=== PATIENT | male | born 1965 ===

== ENCOUNTER 2018-11-05 23:27 | Observation (INO) | payer MEDICAID, OTHER ==
--- NOTE | 2018-11-06 00:44 | ED PDOC ---
Arrival/HPI - General Chief Complaint: Dizziness/Lightheaded Time Seen by Provider: 11/05/18 23:59 Historian: Patient - History of Present Illness Narrative History of Present Illness (Text): 11/06/18 00:36 53 year old male, with no significant past medical history, presents to the emergency department complaining of generalized weakness, dizziness, and urinary frequency. Patient states he has generally not been feeling well. Patient denies any chest pain, shortness of breath, abdominal pain, or back pain. Patient states he has a history of left inguinal hernia, which he states does not bother him. Patient denies any history of fever, chills, or any other complaint. Time/Duration: Prior to Arrival, 24 hours Symptom Onset: Gradual Symptom Course: Unchanged Activities at Onset: Light Context: Home Past Medical History - Provider Review Nursing Documentation Reviewed: Yes - Tetanus Immunization Tetanus Immunization: Unknown - Gastrointestinal Other/Comment: inguinal hernia - Psychiatric Hx Substance Use: No Family/Social History - Physician Review Nursing Documentation Reviewed: Yes Family/Social History: No Known Family HX Smoking Status: Never Smoked Hx Alcohol Use: No Hx Substance Use: No Allergies/Home Meds Allergies/Adverse Reactions: Allergies No Known Allergies Allergy (Verified 11/05/18 23:59) Home Medications: Home Meds Medication Instructions Recorded Confirmed No Known Home Med 06/11/14 11/05/18 Review of Systems - Physician Review All systems were reviewed & negative as marked: Yes - Review of Systems Constitutional: Fatigue. absent: Fevers, Night Sweats Respiratory: absent: SOB Cardiovascular: absent: Chest Pain Gastrointestinal: absent: Abdominal Pain Genitourinary Male: Frequency Musculoskeletal: absent: Back Pain Neurological: Dizziness Physical Exam Vital Signs Reviewed: Yes Vital Signs Temp Pulse Resp BP Pulse Ox 11/05/18 23:53 98.3 F 113 H 18 145/95 H 99 Temperature: Afebrile Blood Pressure: Hypertensive Pulse: Tachycardic Respiratory Rate: Normal Appearance: Positive for: Well-Appearing, Non-Toxic, Comfortable Pain Distress: None Mental Status: Positive for: Alert and Oriented X 3 Finger Stick Blood Glucose: 117 - Systems Exam Head: Present: Atraumatic, Normocephalic Pupils: Present: PERRL Extroacular Muscles: Present: EOMI Conjunctiva: Present: Normal Mouth: Present: Moist Mucous Membranes Neck: Present: Normal Range of Motion Respiratory/Chest: Present: Clear to Auscultation, Good Air Exchange. No: Respiratory Distress, Accessory Muscle Use Cardiovascular: Present: Regular Rate and Rhythm, Normal S1, S2. No: Murmurs Abdomen: Present: Hernias (Left inguinal hernia, easily reducible, nontender). No: Tenderness, Distention, Peritoneal Signs Genitourinary Male: No: Testicle Swelling Back: Present: Normal Inspection. No: CVA Tenderness Upper Extremity: Present: Normal Inspection. No: Cyanosis, Edema Lower Extremity: Present: Normal Inspection. No: Edema Neurological: Present: GCS=15, CN II-XII Intact, Speech Normal Skin: Present: Warm, Dry, Normal Color. No: Rashes Psychiatric: Present: Alert, Oriented x 3, Normal Insight, Normal Concentration Medical Decision Making ED Course and Treatment: 11/06/18 00:55 Impression: 53 year old male presents with generalized weakness, dizziness, and urinary frequency Plan: -- CT Head -- EKG -- CMP, Cardiac Iso -- CBC -- Chst X-ray -- Urinalysis -- Reassess and disposition Prior Visits: Notes and results from previous visits were reviewed. Progress Notes: 11/06/18 00:58 EKG reviewed by me, shows: Tachycardia @ 112bpm No acute changes 11/06/18 01:05 Chest X-ray reviewed by me, shows: No acute process 11/06/18 01:39 CT Head without Intravenous Contrast. CLINICAL HISTORY: Weak/dizzy TECHNIQUE: Axial computed tomography images of the head/brain without intravenous contrast. 888.73 mGy-cm COMPARISON: CT\SD\SR - HEAD W/O CONTRAST - 06/11/2014 11:47 PM EDT FINDINGS: BRAIN No acute intraparenchymal hemorrhage. No mass lesion. No CT evidence for acute territorial infarct. No midline shift or extra-axial collections. VENTRICLES: No hydrocephalus. ORBITS: The orbits are unremarkable. SINUSES AND MASTOIDS: The paranasal sinuses and mastoid air cells are clear. BONES: No fracture. SOFT TISSUES: Unremarkable. IMPRESSION: No acute intracranial abnormality. No significant change from 06/11/2014. 11/06/18 02:34 Case discussed with biomedical instrument technician and Dr Robles, who accept patient to the hospitalist service. 11/06/18 06:34 Patient with elevated D-Dimer had CT [facility] chest results c/w pulmonary embolism.Pt. received Lovenox.House staff aware. - RAD Interpretation Radiology Orders: 11/06/18 00:11 CHEST PORTABLE [RAD] Stat 11/06/18 00:17 HEAD W/O CONTRAST [CT] Stat - Scribe Statement The provider has reviewed the documentation as recorded by the Shoshanaibe Jose Daniel Vergara Provider Scribe Attestation: All medical record entries made by the Scribe were at my direction and personally dictated by me. I have reviewed the chart and agree that the record accurately reflects my personal performance of the history, physical exam, medical decision making, and the department course for this patient. I have also personally directed, reviewed, and agree with the discharge instructions and disposition. Disposition/Present on Arrival - Present on Arrival Any Indicators Present on Arrival: No History of DVT/PE: No History of Uncontrolled Diabetes: No Urinary Catheter: No History of Decub. Ulcer: No History Surgical Site Infection Following: None - Disposition Have Diagnosis and Disposition been Completed?: Yes Diagnosis: Dizziness, Weakness, Near syncope, Pulmonary embolism Disposition: HOSPITALIZED Disposition Time: 02:39 Patient Problems: Current Active Problems Problem Status Onset Dizziness Acute Near syncope Acute Weakness Acute Condition: STABLE
[2018-11-06 00:55] LABS: HEMOGLOBIN 14.6 g/dL (14.0-18.0); MEAN CELL VOLUME 88.1 fl (80.0-105.0); MEAN CORPUSCULAR HEMOGLOBIN 29.9 pg (25.0-35.0); MEAN CORPUSCULAR HGB CONC 33.9 g/dl (31.0-37.0); MEAN PLATELET VOLUME 10.5 fl (7.0-11.0); RBC 4.89 10^6/uL (3.5-6.1); RED CELL DISTRIBUTION WIDTH 12.7 % (11.5-14.5); WHITE BLOOD COUNT 6.6 10^3/uL (4.5-11.0)
[2018-11-06 00:59] LABS: PH,URINE 6.5 (4.7-8.0); URINE BILIRUBIN NEGATIVE (NEGATIVE); URINE BLOOD NEGATIVE (NEGATIVE); URINE GLUCOSE (UA) NEGATIVE (NEGATIVE); URINE LEUKOCYTE ESTERASE NEGATIVE Leu/uL (NEGATIVE); URINE PROTEIN NEGATIVE mg/dL (<30 mg/dL); URINE UROBILINOGEN 0.2 E.U./dL (<1 E.U./dL)
[2018-11-06 01:04] LABS: ALB/GLOB RATIO 1.4 (1.1-1.8); ALBUMIN 4.6 g/dL (3.0-4.8); ALT/SGPT 22 U/L (7-56); AST/SGOT 35 U/L (17-59); BLOOD UREA NITROGEN 10 mg/dL (7-21); CALCIUM 9.4 mg/dL (8.4-10.5); GFR NON-AFRICAN AMERICAN > 60
[2018-11-06 01:06] LABS: INR 1.1; PARTIAL THROMBOPLASTIN TIME 33.1 Seconds (26.9-38.3); PROTHROMBIN TIME 12.2 SECONDS (9.4-12.5)
[2018-11-06 01:08] LABS: URINE APPEARANCE CLEAR (CLEAR); URINE COLOR STRAW (YELLOW)
[2018-11-06 01:14] LABS: TROPONIN I < 0.01 ng/mL
--- NOTE | 2018-11-06 02:54 | CP.PCM.HP ---
<Waldo Nielsen - Last Filed: 11/06/18 04:03> History of Present Illness - History of Present Illness History of Present Illness: Waldo Nielsen, PGY1 Medicine H&P for Dr. 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 Medical team evaluated patient. 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 He was not involved in any MVA. He mentioned that he only had breakfast for the day, prior to experiencing generalized weakness. He said this has happened in the past about a few years ago. Patient has sick contacts, son had the flu last week. He has never received the flu shot. He has associated urinary frequency however he denies any dysuria. Denies chest pain, shortness of breath, palpitations, nausea, vomiting, diarrhea, fever, chills, runny nose, fatigue. He has never had a colonoscopy. A full 12 point ROS was conducted and unremarkable except as stated above. PMD: Dr. Parnell PMHx: left inguinal hernia PSHx: denies Meds: none Allergies: NKDA SocialHx: denies smoking, EtOH, and illicit drug use. 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 FamHx: mother has HTN. Otherwise, non-contributory. No malignancy in family. Present on Admission - Present on Admission Any Indicators Present on Admission: No Review of Systems - Review of Systems All systems: reviewed and no additional remarkable complaints except (as per HPI) Past Patient History - Tetanus Immunizations Tetanus Immunization: Unknown - Past Social History Smoking Status: Never Smoked - GASTROINTESTINAL Other/Comment: inguinal hernia - PSYCHIATRIC Hx Substance Use: No - SURGICAL HISTORY Hx Surgeries: No Meds Allergies/Adverse Reactions: Allergies Allergy/AdvReac Type Severity Reaction Status Date / Time No Known Allergies Allergy Verified 11/05/18 23:59 Physical Exam - Constitutional Appears: No Acute Distress - Head Exam Head Exam: ATRAUMATIC, NORMAL INSPECTION, NORMOCEPHALIC - Eye Exam Eye Exam: EOMI, Normal appearance, PERRL Pupil Exam: NORMAL ACCOMODATION, PERRL - ENT Exam ENT Exam: Mucous Membranes Moist, Normal Exam - Respiratory Exam Respiratory Exam: Clear to Auscultation Bilateral, NORMAL BREATHING PATTERN. absent: Chest Wall Tenderness, Rales, Rhonchi, Wheezes, Respiratory Distress, Stridor - Cardiovascular Exam Cardiovascular Exam: REGULAR RHYTHM, +S1, +S2. absent: Systolic Murmur - GI/Abdominal Exam GI & Abdominal Exam: Normal Bowel Sounds, Soft. absent: Distended, Firm, Guarding, Organomegaly, Rebound, Rigid, Tenderness Additional comments: left inguinal hernia - Extremities Exam Extremities exam: Positive for: full ROM, normal capillary refill, normal inspection, pedal pulses present - Back Exam Back exam: NORMAL INSPECTION - Neurological Exam Neurological exam: Alert, CN II-XII Intact, Oriented x3, Reflexes Normal Additional comments: Motor strength 5/5 in all extremities. Sensation intact in all extremities. - Psychiatric Exam Psychiatric exam: Normal Affect, Normal Mood - Skin Skin Exam: Dry, Intact, Normal Color, Warm Results - Vital Signs Recent Vital Signs: Last Vital Signs Temp 98.3 F 11/05/18 23:53 Pulse 113 H 11/05/18 23:53 Resp 18 11/05/18 23:53 BP 145/95 H 11/05/18 23:53 Pulse Ox 99 11/05/18 23:53 - Labs Result Diagrams: 11/06/18 00:30 11/06/18 00:30 Labs: Laboratory Results - last 24 hr 11/06/18 11/06/18 11/06/18 00:26 00:30 00:30 WBC RBC Hgb Hct MCV MCH MCHC RDW Plt Count MPV PT 12.2 INR 1.10 APTT 33.1 Sodium 138 Potassium 4.0 Chloride 101 Carbon Dioxide 29 Anion Gap 13 BUN 10 Creatinine 0.8 Est GFR ( Amer) > 60 Est GFR (Non-Af Amer) > 60 Random Glucose 129 H Calcium 9.4 Total Bilirubin 0.5 AST 35 ALT 22 Alkaline Phosphatase 79 Lactate Dehydrogenase 424 Total Creatine Kinase 148 Troponin I < 0.01 Total Protein 7.9 Albumin 4.6 Globulin 3.3 Albumin/Globulin Ratio 1.4 Urine Color Straw Urine Appearance Clear Urine pH 6.5 Ur Specific [place] <= 1.005 Urine Protein Negative Urine Glucose (UA) Negative Urine Ketones Negative Urine Blood Negative Urine Nitrate Negative Urine Bilirubin Negative Urine Urobilinogen 0.2 Ur Leukocyte Esterase Negative 11/06/18 00:30 WBC 6.6 RBC 4.89 Hgb 14.6 Hct 43.1 MCV 88.1 MCH 29.9 MCHC 33.9 RDW 12.7 Plt Count 231 MPV 10.5 PT INR APTT Sodium Potassium Chloride Carbon Dioxide Anion Gap BUN Creatinine Est GFR ( Amer) Est GFR (Non-Af Amer) Random Glucose Calcium Total Bilirubin AST ALT Alkaline Phosphatase Lactate Dehydrogenase Total Creatine Kinase Troponin I Total Protein Albumin Globulin Albumin/Globulin Ratio Urine Color Urine Appearance Urine pH Ur Specific [place] Urine Protein Urine Glucose (UA) Urine Ketones Urine Blood Urine Nitrate Urine Bilirubin Urine Urobilinogen Ur Leukocyte Esterase Assessment & Plan - Assessment and Plan (Free Text) Assessment: Patient is a 53 year old male with PMHx left inguinal hernia who presented to the emergency department complaining of generalized weakness 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 Patient will be observed on remote tele for generalized weakness. Plan: Generalized Weakness - Consider anxiety vs Poor PO intake vs flu - D-dimer; low suspicion as per WELLS criteria however hx yard truck driver and tachycardic on presentation - initial trop negative x1; repeat trop q6 - rapid flu; hx sick contact - admit to remote tele for observation - Regular diet - Head CT: no acute findings - CXR: no infiltrate or consolidation - EKG: sinus tachy at [address] or T wave changes. - UA negative for UTI - Utox negative Dispo: observe patient on remote tele. Case was discussed and reviewed with Attending Physician, Dr. Robles <Adriel Robles - Last Filed: 11/06/18 04:40> Results - Vital Signs Recent Vital Signs: Last Vital Signs Temp 98.2 F 11/06/18 03:19 Pulse 82 11/06/18 03:19 Resp 18 11/06/18 03:19 BP 143/95 H 11/06/18 03:19 Pulse Ox 98 11/06/18 03:19 - Labs Result Diagrams: 11/06/18 00:30 11/06/18 00:30 Labs: Laboratory Results - last 24 hr 11/06/18 11/06/18 11/06/18 00:26 00:30 00:30 WBC RBC Hgb Hct MCV MCH MCHC RDW Plt Count MPV PT 12.2 INR 1.10 APTT 33.1 Sodium 138 Potassium 4.0 Chloride 101 Carbon Dioxide 29 Anion Gap 13 BUN 10 Creatinine 0.8 Est GFR ( Amer) > 60 Est GFR (Non-Af Amer) > 60 Random Glucose 129 H Calcium 9.4 Total Bilirubin 0.5 AST 35 ALT 22 Alkaline Phosphatase 79 Lactate Dehydrogenase 424 Total Creatine Kinase 148 Troponin I < 0.01 Total Protein 7.9 Albumin 4.6 Globulin 3.3 Albumin/Globulin Ratio 1.4 Urine Color Straw Urine Appearance Clear Urine pH 6.5 Ur Specific [place] <= 1.005 Urine Protein Negative Urine Glucose (UA) Negative Urine Ketones Negative Urine Blood Negative Urine Nitrate Negative Urine Bilirubin Negative Urine Urobilinogen 0.2 Ur Leukocyte Esterase Negative 11/06/18 00:30 WBC 6.6 RBC 4.89 Hgb 14.6 Hct 43.1 MCV 88.1 MCH 29.9 MCHC 33.9 RDW 12.7 Plt Count 231 MPV 10.5 PT INR APTT Sodium Potassium Chloride Carbon Dioxide Anion Gap BUN Creatinine Est GFR ( Amer) Est GFR (Non-Af Amer) Random Glucose Calcium Total Bilirubin AST ALT Alkaline Phosphatase Lactate Dehydrogenase Total Creatine Kinase Troponin I Total Protein Albumin Globulin Albumin/Globulin Ratio Urine Color Urine Appearance Urine pH Ur Specific [place] Urine Protein Urine Glucose (UA) Urine Ketones Urine Blood Urine Nitrate Urine Bilirubin Urine Urobilinogen Ur Leukocyte Esterase Attending/Attestation - Attestation I have personally seen and examined this patient.: Yes I have fully participated in the care of the patient.: Yes I have reviewed all pertinent clinical information: Yes Notes (Text): 11/06/18 04:39 Patient was seen when he was in bed # 7 in the ER. Agree with history, physical examination, assessment and plan.
[2018-11-06] MEDS ORDERED: Iodixanol 320 MG/ML 100 ML BOTTLE IV ONE (05:36)
[2018-11-06] MEDS ORDERED: Enoxaparin 80 mg Syringe SC STA (05:41)
[2018-11-06] MEDS: Pantoprazole 40 mg EC Tab PO SCH (06:27)
[2018-11-06 06:32] LABS: BASO # 0.01 K/mm3 (0.0-2.0); BASO % 0.1 % (0.0-3.0); EOS % 0.6 % (1.5-5.0); HEMOGLOBIN 14.1 g/dL (14.0-18.0); LYMPH # 2.7 (1.2-3.4); LYMPH % 39.8 % (22.0-35.0); MEAN CELL VOLUME 88.3 fl (80.0-105.0); MEAN CORPUSCULAR HEMOGLOBIN 29.9 pg (25.0-35.0); MEAN CORPUSCULAR HGB CONC 33.8 g/dl (31.0-37.0); MEAN PLATELET VOLUME 10.2 fl (7.0-11.0); MONO # 0.7 (0.1-0.6); MONO % 10.3 % (1.0-6.0); RBC 4.72 10^6/uL (3.5-6.1); RED CELL DISTRIBUTION WIDTH 12.7 % (11.5-14.5); WHITE BLOOD COUNT 6.8 10^3/uL (4.5-11.0)
[2018-11-06 06:35] VITALS: BMI 22.4
[2018-11-06] MEDS ORDERED: Heparin 25,000units in D5W 25,000 UNITS/250 ML BAG IV ONE (06:38)
[2018-11-06 06:48] LABS: TROPONIN I < 0.01 ng/mL
--- NOTE | 2018-11-06 08:40 | CT ---
Date of service: 11/06/2018 PROCEDURE: CT HEAD WITHOUT CONTRAST. HISTORY: weak/dizzy COMPARISON: None available. TECHNIQUE: Axial computed tomography images were obtained through the head/brain without intravenous contrast. Radiation dose: Total exam DLP = 888.73 mGy-cm. This CT exam was performed using one or more of the following dose reduction techniques: Automated exposure control, adjustment of the mA and/or kV according to patient size, and/or use of iterative reconstruction technique. FINDINGS: HEMORRHAGE: No intracranial hemorrhage. BRAIN: Kebede-white matter differentiation is preserved. There is no mass, mass effect or abnormal extra-axial fluid collection. There is no territorial infarction. The midline sagittal structures are normal. VENTRICLES: The ventricles are normal in size, shape and configuration. CALVARIUM: There is no calvarial fracture or extracranial soft tissue swelling. PARANASAL SINUSES: Predominantly clear. MASTOID AIR CELLS: Predominantly clear. OTHER FINDINGS: None. IMPRESSION: No acute intracranial abnormality. A preliminary report was provided by [facility]. Six
--- NOTE | 2018-11-06 08:52 | US ---
HISTORY: Leg pain and swelling. Evaluate for DVT PHYSICIAN(S): Jose Daniel Bailey MD. TECHNIQUE: Duplex sonography and color-flow Doppler with graded compression were used to evaluate the deep venous systems of both lower extremities. FINDINGS: The visualized deep venous systems of both lower extremities are sonographically normal and compressible. Normal wave forms and augmentation are seen. There is no sonographic evidence for deep venous thrombosis in the visualized segments of both lower extremities. IMPRESSION: No sonographic evidence for deep venous thrombosis in the visualized segments of both lower extremities.
[2018-11-06 09:04] LABS: BASO # 0.01 K/mm3 (0.0-2.0); BASO % 0.2 % (0.0-3.0); EOS % 0.6 % (1.5-5.0); HEMOGLOBIN 15.1 g/dL (14.0-18.0); LYMPH # 1.8 (1.2-3.4); MEAN CELL VOLUME 88.3 fl (80.0-105.0); MEAN CORPUSCULAR HGB CONC 33.9 g/dl (31.0-37.0); MEAN PLATELET VOLUME 10.1 fl (7.0-11.0); MONO # 0.3 (0.1-0.6); MONO % 6.1 % (1.0-6.0); RBC 5.04 10^6/uL (3.5-6.1); RED CELL DISTRIBUTION WIDTH 12.9 % (11.5-14.5); WHITE BLOOD COUNT 5.2 10^3/uL (4.5-11.0)
[2018-11-06 09:11] LABS: HDL CHOLESTEROL 51 mg/dL (29-60)
[2018-11-06 09:15] LABS: INR 1.12; PARTIAL THROMBOPLASTIN TIME 52.7 Seconds (26.9-38.3); PROTHROMBIN TIME 12.6 SECONDS (9.4-12.5)
[2018-11-06 09:21] LABS: LDL CHOLESTEROL 166 mg/dL (0-129)
--- NOTE | 2018-11-06 11:39 | CARD ---
APPROVED REPORT Date of service: 11/05/2018 EKG Measurement Heart [id number] <Conclusion> Sinus tachycardia Otherwise normal ECG
--- NOTE | 2018-11-06 12:55 | CARD ---
APPROVED REPORT Date of service: 11/06/2018 EXAM: Two-dimensional and M-mode echocardiogram with Doppler and color Doppler. INDICATION Pleural Effusion 2D DIMENSIONS Left Atrium (2D)3.0 (1.6-4.0cm)IVSd1.0 (0.7-1.1cm) LVDd3.7 (3.9-5.9cm)PWd1.1 (0.7-1.1cm) LVDs2.4 (2.5-4.0cm)FS (%) 34.2 % LVEF (%)64.1 (>50%) M-Mode DIMENSIONS Aortic Root3.10 (2.2-3.7cm)Aortic Cusp Exc.1.80 (1.5-2.0cm) Aortic Valve AoV Peak Ahddgqhr543.0cm/[place] Peak GR.5mmHg Mitral Valve MV E Dricuquh08.9cm/sMV A Scyjrrst96.7cm/sE/A ratio0.8 TDI E/Lateral E'0.0E/Medial E'0.0 Tricuspid Valve TR Peak Sdstzjtf07io/sRAP [id number] Peak Gr.3mmHg [id number] LEFT VENTRICLE The left ventricle is normal size. There is normal left ventricular wall thickness. The left ventricular function is normal.EF-60-65% There is normal LV segmental wall motion. Transmitral Doppler flow pattern is Grade III-reversible restrictive diastolic dysfunction. No left ventricle thrombus noted on this study. There is no ventricular septal defect visualized. There is no left ventricular aneurysm. There is no mass noted in the left ventricle. RIGHT VENTRICLE The right ventricle is normal size. There is normal right ventricular wall thickness. The right ventricular systolic function is normal. ATRIA The left atrium size is normal. The right atrium size is normal. The interatrial septum is intact with no evidence for an atrial septal defect. AORTIC VALVE The aortic valve is thickened but opens well. A bicuspid aortic valve cannot be excluded. The aortic valve is not well visualized. There is trace to mild aortic regurgitation. There is no aortic valvular stenosis. There is no aortic valvular vegetation. MITRAL VALVE The mitral valve is thickened but opens well. Mitral regurgitation is trace. There is no mitral valve stenosis. There is no evidence of mitral valve prolapse. TRICUSPID VALVE The tricuspid valve leaflets are thickened , but open well. There is trace tricuspid regurgitation.RVSP-13 mmof hg. There is no tricuspid valve stenosis. There is no tricuspid valve prolapse or vegetation. PULMONIC VALVE The pulmonary valve is normal in structure. There is no pulmonic valvular regurgitation. There is no pulmonic valvular stenosis. GREAT VESSELS The aortic root is normal in size. The ascending aorta is normal in size. The pulmonary artery is normal. The IVC is normal in size and collapses >50% with inspiration. PERICARDIAL EFFUSION There is no pleural effusion. There is no pericardial effusion. <Conclusion> Normal chamber Size,. EF-60-65% There is trace to mild aortic regurgitation. A bicuspid aortic valve cannot be excluded. The aortic valve is not well visualized. Mitral regurgitation is trace. There is trace tricuspid regurgitation.RVSP-13 mmof hg. The IVC is normal in size and collapses >50% with inspiration. There is no pericardial effusion. No vegetation or thrombus noted.
[2018-11-06 13:29] LABS: EOS % 0.4 % (1.5-5.0); HEMOGLOBIN 14.4 g/dL (14.0-18.0); LYMPH # 1.8 (1.2-3.4); LYMPH % 35.1 % (22.0-35.0); MEAN CORPUSCULAR HEMOGLOBIN 29.4 pg (25.0-35.0); MONO # 0.4 (0.1-0.6); MONO % 8.8 % (1.0-6.0); RBC 4.9 10^6/uL (3.5-6.1); RED CELL DISTRIBUTION WIDTH 12.8 % (11.5-14.5)
--- NOTE | 2018-11-06 13:37 | RAD ---
Date of service: 11/06/2018 PROCEDURE: CHEST RADIOGRAPH, 1 VIEW HISTORY: weakness/dizzy COMPARISON: None available. FINDINGS: LUNGS: Clear. PLEURA: No pneumothorax or pleural fluid seen. CARDIOVASCULAR: No aortic atherosclerotic calcification present. Normal. OSSEOUS STRUCTURES: No significant abnormalities. VISUALIZED UPPER ABDOMEN: Normal. OTHER FINDINGS: None. IMPRESSION: No active disease.
[2018-11-06 13:50] LABS: TROPONIN I < 0.01 ng/mL
--- NOTE | 2018-11-06 15:34 | CT ---
Date of service: 11/06/2018 PROCEDURE: CT Chest with contrast (Pulmonary Angiogram) HISTORY: evaluate for PE COMPARISON: None available. TECHNIQUE: Axial computed tomography images were obtained of the chest in the pulmonary arterial phase of enhancement. Coronal and sagittal reformatted images were created and reviewed. Intravenous contrast dose: Visipaque 320, 100 cc Radiation dose: Total exam DLP = 314.1 mGy-cm. This CT exam was performed using one or more of the following dose reduction techniques: Automated exposure control, adjustment of the mA and/or kV according to patient size, and/or use of iterative reconstruction technique. FINDINGS: PULMONARY ARTERIES: There is a small pulmonary embolus identified is a filling defect in a segmental branch at the right lower lobe. No prominent pulmonary emboli identified bilaterally. Main pulmonary artery is normal in caliber and no overt CT sign of right ventricular strain is identified at this time. Clinically correlate nevertheless. AORTA: No acute findings. No thoracic aortic aneurysm. No aortic atherosclerotic calcification or mural plaque present. LUNGS: Unremarkable. No nodule, mass or pulmonary consolidation. PLEURAL SPACES: Unremarkable. No effusion or pneumothorax. HEART: Unremarkable. No cardiomegaly. No significant pericardial effusion. LYMPH NODES: The thoracic inlet is unremarkable appearing. No significant lymphadenopathy. BONES, CHEST WALL: Unremarkable. No fracture or destructive lesion OTHER FINDINGS: Unremarkable. IMPRESSION: Limited pulmonary embolus right lower lobe as discussed above in segmental branch. No additional acute findings. Concordant preliminary report from [facility], 11/06/2018 6:18 a.m..
[2018-11-06] MEDS: Enoxaparin 80 mg Syringe SC SCH ×2 (17:12→21:06)
[2018-11-06] MEDS ORDERED: Enoxaparin 60 mg Syringe SC ONE (17:30)
[2018-11-06 19:26] LABS: TROPONIN I < 0.01 ng/mL
--- NOTE | 2018-11-06 22:23 | CP.PCM.CON ---
History of Present Illness - History of Present Illness History of Present Illness: Covering Jermaine 53 year old male with no past medical history, presenting with fatigue, found to have PE. 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 He finished driving and notes to goint to the bathroom and suddenly became very weak and tired. His symptoms worried him and he came to the ER. In the ER he was found to have an elevated Ddimer and underwent LE venous duplex which was negative for DVT. CT angio of the chest showed a subsegmental PE. He is currently on lovenox and notes to feeling better. Past medical history: None Past surgical history: Denies Family history: Denies hematologic and oncologic problems Social history: Denies tobacco, alcohol, and illicit drug use. Allergies: NKA Review of systems: All remaining review of systems including HEENT, cardiovascular, respiratory, gastrointestinal, genitourinary, musculoskeletal, dermatologic,neurologic, and psychiatric are negative unless mentioned in the HPI. Past Patient History - Tetanus Immunizations Tetanus Immunization: Unknown - Past Social History Smoking Status: Never Smoked - MUSCULOSKELETAL/RHEUMATOLOGICAL Hx Falls: No - GASTROINTESTINAL Other/Comment: inguinal hernia - PSYCHIATRIC Hx Substance Use: No - SURGICAL HISTORY Hx Surgeries: No Meds Allergies/Adverse Reactions: Allergies Allergy/AdvReac Type Severity Reaction Status Date / Time No Known Allergies Allergy Verified 11/05/18 23:59 - Medications Medications: Current Medications Enoxaparin Sodium (Lovenox) 65 mg SC Q12 [facility]; Protocol Last Admin: 11/06/18 21:06 Dose: 65 mg Pantoprazole Sodium (Protonix Ec Tab) 40 mg PO 0600 [facility] Last Admin: 11/06/18 06:27 Dose: 40 mg Physical Exam - Head Exam Head Exam: ATRAUMATIC - Eye Exam Eye Exam: Normal appearance - ENT Exam ENT Exam: Mucous Membranes Dry - Respiratory Exam Respiratory Exam: NORMAL BREATHING PATTERN - Cardiovascular Exam Cardiovascular Exam: +S1, +S2 - GI/Abdominal Exam GI & Abdominal Exam: Normal Bowel Sounds - Extremities Exam Extremities exam: Positive for: normal inspection - Neurological Exam Neurological exam: Oriented x3 - Psychiatric Exam Psychiatric exam: Normal Affect, Normal Mood - Skin Skin Exam: Warm Results - Vital Signs Recent Vital Signs: Last Vital Signs Temp 99 F 11/06/18 16:43 Pulse 75 11/06/18 16:43 Resp 20 11/06/18 16:43 BP 126/86 11/06/18 16:43 Pulse Ox 96 11/06/18 16:43 - Labs Result Diagrams: 11/06/18 13:00 11/06/18 00:30 Labs: Laboratory Results - last 24 hr 11/05/18 11/06/18 11/06/18 23:50 00:26 00:30 WBC RBC Hgb Hct MCV MCH MCHC RDW Plt Count MPV Neut % (Auto) Lymph % (Auto) [place] % (Auto) Eos % (Auto) Baso % (Auto) Lymph # (Auto) [place] # (Auto) Eos # (Auto) Baso # (Auto) Absolute Neuts (auto) PT 12.2 INR 1.10 APTT 33.1 D-Dimer, Quantitative Sodium Potassium Chloride Carbon Dioxide Anion Gap BUN Creatinine Est GFR ( Amer) Est GFR (Non-Af Amer) POC Glucose (mg/dL) 117 H Random Glucose Hemoglobin A1c Calcium Magnesium Total Bilirubin AST ALT Alkaline Phosphatase Lactate Dehydrogenase Total Creatine Kinase Troponin I Total Protein Albumin Globulin Albumin/Globulin Ratio Triglycerides Cholesterol LDL Cholesterol Direct HDL Cholesterol TSH 3rd Generation Urine Color Straw Urine Appearance Clear Urine pH 6.5 Ur Specific [place] <= 1.005 Urine Protein Negative Urine Glucose (UA) Negative Urine Ketones Negative Urine Blood Negative Urine Nitrate Negative Urine Bilirubin Negative Urine Urobilinogen 0.2 Ur Leukocyte Esterase Negative Influenza Typ A,B (EIA) 11/06/18 11/06/18 11/06/18 00:30 00:30 00:30 WBC 6.6 RBC 4.89 Hgb 14.6 Hct 43.1 MCV 88.1 MCH 29.9 MCHC 33.9 RDW 12.7 Plt Count 231 MPV 10.5 Neut % (Auto) Lymph % (Auto) [place] % (Auto) Eos % (Auto) Baso % (Auto) Lymph # (Auto) [place] # (Auto) Eos # (Auto) Baso # (Auto) Absolute Neuts (auto) PT INR APTT D-Dimer, Quantitative 3330 H Sodium 138 Potassium 4.0 Chloride 101 Carbon Dioxide 29 Anion Gap 13 BUN 10 Creatinine 0.8 Est GFR ( Amer) > 60 Est GFR (Non-Af Amer) > 60 POC Glucose (mg/dL) Random Glucose 129 H Hemoglobin A1c Calcium 9.4 Magnesium Total Bilirubin 0.5 AST 35 ALT 22 Alkaline Phosphatase 79 Lactate Dehydrogenase 424 Total Creatine Kinase 148 Troponin I < 0.01 Total Protein 7.9 Albumin 4.6 Globulin 3.3 Albumin/Globulin Ratio 1.4 Triglycerides Cholesterol LDL Cholesterol Direct HDL Cholesterol TSH 3rd Generation Urine Color Urine Appearance Urine pH Ur Specific [place] Urine Protein Urine Glucose (UA) Urine Ketones Urine Blood Urine Nitrate Urine Bilirubin Urine Urobilinogen Ur Leukocyte Esterase Influenza Typ A,B (EIA) 11/06/18 11/06/18 11/06/18 04:43 06:00 06:00 WBC 6.8 RBC 4.72 Hgb 14.1 Hct 41.7 L MCV 88.3 MCH 29.9 MCHC 33.8 RDW 12.7 Plt Count 221 MPV 10.2 Neut % (Auto) 49.2 L Lymph % (Auto) 39.8 H [place] % (Auto) 10.3 H Eos % (Auto) 0.6 L Baso % (Auto) 0.1 Lymph # (Auto) 2.7 [place] # (Auto) 0.7 H Eos # (Auto) 0.0 Baso # (Auto) 0.01 Absolute Neuts (auto) 3.34 PT INR APTT D-Dimer, Quantitative Sodium Potassium Chloride Carbon Dioxide Anion Gap BUN Creatinine Est GFR ( Amer) Est GFR (Non-Af Amer) POC Glucose (mg/dL) Random Glucose Hemoglobin A1c Calcium Magnesium 2.0 Total Bilirubin AST ALT Alkaline Phosphatase Lactate Dehydrogenase Total Creatine Kinase Troponin I < 0.01 Total Protein Albumin Globulin Albumin/Globulin Ratio Triglycerides Cholesterol LDL Cholesterol Direct HDL Cholesterol TSH 3rd Generation Urine Color Urine Appearance Urine pH Ur Specific [place] Urine Protein Urine Glucose (UA) Urine Ketones Urine Blood Urine Nitrate Urine Bilirubin Urine Urobilinogen Ur Leukocyte Esterase Influenza Typ A,B (EIA) Negative for flu a/b 11/06/18 11/06/18 11/06/18 08:45 08:45 08:45 WBC 5.2 D RBC 5.04 Hgb 15.1 Hct 44.5 MCV 88.3 MCH 30.0 MCHC 33.9 RDW 12.9 Plt Count 222 MPV 10.1 Neut % (Auto) 59.1 Lymph % (Auto) 34.0 [place] % (Auto) 6.1 H Eos % (Auto) 0.6 L Baso % (Auto) 0.2 Lymph # (Auto) 1.8 [place] # (Auto) 0.3 Eos # (Auto) 0.0 Baso # (Auto) 0.01 Absolute Neuts (auto) 3.10 PT 12.6 H INR 1.12 APTT 52.7 H D-Dimer, Quantitative Sodium Potassium Chloride Carbon Dioxide Anion Gap BUN Creatinine Est GFR ( Amer) Est GFR (Non-Af Amer) POC Glucose (mg/dL) Random Glucose Hemoglobin A1c Calcium Magnesium Total Bilirubin AST ALT Alkaline Phosphatase Lactate Dehydrogenase Total Creatine Kinase Troponin I Total Protein Albumin Globulin Albumin/Globulin Ratio Triglycerides 46 Cholesterol 233 H LDL Cholesterol Direct 166 H HDL Cholesterol 51 TSH 3rd Generation Urine Color Urine Appearance Urine pH Ur Specific [place] Urine Protein Urine Glucose (UA) Urine Ketones Urine Blood Urine Nitrate Urine Bilirubin Urine Urobilinogen Ur Leukocyte Esterase Influenza Typ A,B (EIA) 11/06/18 11/06/18 11/06/18 08:45 08:45 13:00 WBC 5.0 RBC 4.90 Hgb 14.4 Hct 43.6 MCV 89.0 MCH 29.4 MCHC 33.0 RDW 12.8 Plt Count 230 MPV 10.0 Neut % (Auto) 55.7 Lymph % (Auto) 35.1 H [place] % (Auto) 8.8 H Eos % (Auto) 0.4 L Baso % (Auto) 0.0 Lymph # (Auto) 1.8 [place] # (Auto) 0.4 Eos # (Auto) 0.0 Baso # (Auto) 0.00 Absolute Neuts (auto) 2.80 PT INR APTT D-Dimer, Quantitative Sodium Potassium Chloride Carbon Dioxide Anion Gap BUN Creatinine Est GFR ( Amer) Est GFR (Non-Af Amer) POC Glucose (mg/dL) Random Glucose Hemoglobin A1c 5.7 Calcium Magnesium Total Bilirubin AST ALT Alkaline Phosphatase Lactate Dehydrogenase Total Creatine Kinase Troponin I Total Protein Albumin Globulin Albumin/Globulin Ratio Triglycerides Cholesterol LDL Cholesterol Direct HDL Cholesterol TSH 3rd Generation 1.08 Urine Color Urine Appearance Urine pH Ur Specific [place] Urine Protein Urine Glucose (UA) Urine Ketones Urine Blood Urine Nitrate Urine Bilirubin Urine Urobilinogen Ur Leukocyte Esterase Influenza Typ A,B (EIA) 11/06/18 11/06/18 11/06/18 13:00 13:00 19:02 WBC RBC Hgb Hct MCV MCH MCHC RDW Plt Count MPV Neut % (Auto) Lymph % (Auto) [place] % (Auto) Eos % (Auto) Baso % (Auto) Lymph # (Auto) [place] # (Auto) Eos # (Auto) Baso # (Auto) Absolute Neuts (auto) PT INR APTT 47.9 H D-Dimer, Quantitative Sodium Potassium Chloride Carbon Dioxide Anion Gap BUN Creatinine Est GFR ( Amer) Est GFR (Non-Af Amer) POC Glucose (mg/dL) Random Glucose Hemoglobin A1c Calcium Magnesium Total Bilirubin AST ALT Alkaline Phosphatase Lactate Dehydrogenase 373 364 Total Creatine Kinase 164 173 Troponin I < 0.01 < 0.01 Total Protein Albumin Globulin Albumin/Globulin Ratio Triglycerides Cholesterol LDL Cholesterol Direct HDL Cholesterol TSH 3rd Generation Urine Color Urine Appearance Urine pH Ur Specific [place] Urine Protein Urine Glucose (UA) Urine Ketones Urine Blood Urine Nitrate Urine Bilirubin Urine Urobilinogen Ur Leukocyte Esterase Influenza Typ A,B (EIA) Assessment & Plan (1) Pulmonary embolism Assessment and Plan: likely embolized from LE - provoked from long driving agree with therapeutic anticoagulation outpatient NOAC - minimum duration 6m but consider lifelong given occupational hazard oupatient surveillance colonoscopy Status: Acute (2) Coagulopathy Assessment and Plan: secondary to anticoagulation Thank you for this interesting consult. Status: Acute
[2018-11-07] MEDS: Pantoprazole 40 mg EC Tab PO SCH (05:50)
[2018-11-07 06:43] LABS: BASO # 0.02 K/mm3 (0.0-2.0); BASO % 0.4 % (0.0-3.0); EOS # 0.1 (0.0-0.7); EOS % 1.6 % (1.5-5.0); HEMOGLOBIN 15.1 g/dL (14.0-18.0); LYMPH # 3.5 (1.2-3.4); LYMPH % 62.8 % (22.0-35.0); MEAN CORPUSCULAR HEMOGLOBIN 29.5 pg (25.0-35.0); MEAN CORPUSCULAR HGB CONC 32.8 g/dl (31.0-37.0); MEAN PLATELET VOLUME 10.7 fl (7.0-11.0); MONO # 0.6 (0.1-0.6); MONO % 10.3 % (1.0-6.0); RBC 5.12 10^6/uL (3.5-6.1); RED CELL DISTRIBUTION WIDTH 12.9 % (11.5-14.5); WHITE BLOOD COUNT 5.6 10^3/uL (4.5-11.0)
[2018-11-07 07:20] LABS: ALB/GLOB RATIO 1.3 (1.1-1.8); ALBUMIN 4.5 g/dL (3.0-4.8); ALT/SGPT 22 U/L (7-56); AST/SGOT 33 U/L (17-59); BLOOD UREA NITROGEN 14 mg/dL (7-21); CALCIUM 9.3 mg/dL (8.4-10.5); GFR NON-AFRICAN AMERICAN > 60
[2018-11-07 09:42] VITALS: BP 117/75; RESP 18; TEMP 98.2; O2SAT 97
[2018-11-07 14:43] VITALS: PULSE 102
--- NOTE | 2018-11-07 16:37 | CP.PCM.DIS ---
<Livan Giron - Last Filed: 11/07/18 16:31> Provider - Provider Date of Admission: 11/06/18 02:39 Attending physician: Eliseo Ocampo MD Primary care physician: Juan J Parnell MD Consults: 11/06/18 06:37 Consult [Physician Consult] Routine Comment: pe,elevatd d-dimer Consulting Provider: Nica Dean Consulting Physician: Nica Dean Reason for Consult: pe,elevatd d-dimer Time Spent in preparation of Discharge (in minutes): 60 Diagnosis - Discharge Diagnosis (1) Pulmonary embolism Status: Acute Hospital Course - Lab Results Lab Results: Most Recent Lab Values WBC 5.6 10^3/uL (4.5-11.0) 11/07/18 06:00 RBC 5.12 10^6/uL (3.5-6.1) 11/07/18 06:00 Hgb 15.1 g/dL (14.0-18.0) 11/07/18 06:00 Hct 46.1 % (42.0-52.0) 11/07/18 06:00 MCV 90.0 fl (80.0-105.0) 11/07/18 06:00 MCH 29.5 pg (25.0-35.0) 11/07/18 06:00 MCHC 32.8 g/dl (31.0-37.0) 11/07/18 06:00 RDW 12.9 % (11.5-14.5) 11/07/18 06:00 Plt Count 234 10^3/uL (120.0-450.0) 11/07/18 06:00 MPV 10.7 fl (7.0-11.0) 11/07/18 06:00 Neut % (Auto) 24.9 % (50.0-68.0) L 11/07/18 06:00 Lymph % (Auto) 62.8 % (22.0-35.0) H 11/07/18 06:00 [place] % (Auto) 10.3 % (1.0-6.0) H 11/07/18 06:00 Eos % (Auto) 1.6 % (1.5-5.0) 11/07/18 06:00 Baso % (Auto) 0.4 % (0.0-3.0) 11/07/18 06:00 Lymph # (Auto) 3.5 (1.2-3.4) H 11/07/18 06:00 [place] # (Auto) 0.6 (0.1-0.6) 11/07/18 06:00 Eos # (Auto) 0.1 (0.0-0.7) 11/07/18 06:00 Baso # (Auto) 0.02 K/mm3 (0.0-2.0) 11/07/18 06:00 Absolute Neuts (auto) 1.41 (1.4-6.5) 11/07/18 06:00 PT 12.6 SECONDS (9.4-12.5) H 11/06/18 08:45 INR 1.12 11/06/18 08:45 APTT 47.9 Seconds (26.9-38.3) H 11/06/18 13:00 D-Dimer, Quantitative 3330 ng/mlDDU (0-243) H 11/06/18 00:30 Sodium 141 mmol/L (132-148) 11/07/18 06:00 Potassium 4.2 mmol/L (3.6-5.0) 11/07/18 06:00 Chloride 101 mmol/L (98-107) 11/07/18 06:00 Carbon Dioxide 32 mmol/L (21-33) 11/07/18 06:00 Anion Gap 12 (10-20) 11/07/18 06:00 BUN 14 mg/dL (7-21) 11/07/18 06:00 Creatinine 0.9 mg/dl (0.8-1.5) 11/07/18 06:00 Est GFR ( Amer) > 60 11/07/18 06:00 Est GFR (Non-Af Amer) > 60 11/07/18 06:00 POC Glucose (mg/dL) 117 mg/dL (65-110) H 11/05/18 23:50 Random Glucose 98 mg/dL (70-110) 11/07/18 06:00 Hemoglobin A1c 5.7 % (4.2-6.5) 11/06/18 08:45 Calcium 9.3 mg/dL (8.4-10.5) 11/07/18 06:00 Magnesium 2.0 mg/dL (1.7-2.2) 11/06/18 06:00 Total Bilirubin 0.7 mg/dL (0.2-1.3) 11/07/18 06:00 AST 33 U/L (17-59) 11/07/18 06:00 ALT 22 U/L (7-56) 11/07/18 06:00 Alkaline Phosphatase 67 U/L (38-126) 11/07/18 06:00 Lactate Dehydrogenase 364 U/L (333-699) 11/06/18 19:02 Total Creatine Kinase 173 U/L (35-230) 11/06/18 19:02 Troponin I < 0.01 ng/mL 11/06/18 19:02 Total Protein 7.9 g/dL (5.8-8.3) 11/07/18 06:00 Albumin 4.5 g/dL (3.0-4.8) 11/07/18 06:00 Globulin 3.4 gm/dL 11/07/18 06:00 Albumin/Globulin Ratio 1.3 (1.1-1.8) 11/07/18 06:00 Triglycerides 46 mg/dL (35-160) 11/06/18 08:45 Cholesterol 233 mg/dL (130-200) H 11/06/18 08:45 LDL Cholesterol Direct 166 mg/dL (0-129) H 11/06/18 08:45 HDL Cholesterol 51 mg/dL (29-60) 11/06/18 08:45 TSH 3rd Generation 1.08 mIU/mL (0.46-4.68) 11/06/18 08:45 Urine Color Straw (YELLOW) 11/06/18 00:26 Urine Appearance Clear (CLEAR) 11/06/18 00:26 Urine pH 6.5 (4.7-8.0) 11/06/18 00:26 Ur Specific [place] <= 1.005 (1.005-1.035) 11/06/18 00:26 Urine Protein Negative mg/dL (<30 mg/dL) 11/06/18 00:26 Urine Glucose (UA) Negative mg/dL (NEGATIVE) 11/06/18 00:26 Urine Ketones Negative mg/dL (NEGATIVE) 11/06/18 00:26 Urine Blood Negative (NEGATIVE) 11/06/18 00:26 Urine Nitrate Negative (NEGATIVE) 11/06/18 00:26 Urine Bilirubin Negative (NEGATIVE) 11/06/18 00:26 Urine Urobilinogen 0.2 E.U./dL (<1 E.U./dL) 11/06/18 00:26 Ur Leukocyte Esterase Negative [place]/uL (NEGATIVE) 11/06/18 00:26 Influenza Typ A,B (EIA) Negative for flu a/b (NEGATIVE) 11/06/18 04:43 - Hospital Course Hospital Course: Livan Giron, PGY-1, Discharge Summary for Dr. 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 Patient reported similar experience a few years ago. He denied being involved in any MVA. Upon workup, EKG was normal sinus rhythm at 112 bpm with no acute ST or T wave changes and troponin were negative x3. CXR, CT Head and Abdomen/Pelvis CT were all negative. However, D-dimer was significantly elevated at 3330. LE venous duplex was negative for DVT. CTA of the chest showed a segmental Pulmonary Embolus of the right lower lobe. Subsequently, patient was started on Lovenox 65mg Q12H. Further lab workup showed elevated cholesterol and LDL for which the patient was started on Lipitor 10mg DIN. Patient was stable and ready for discharge today. He reported feeling better this morning and no residual symptoms. He was prescribed eliquis PO 10 mg BID for 7 days and was told to take eliquis 5 mg after the 7 days. He was told to continue his medication regimen and to follow up with PCP. He was told to follow up with Dr. Maki outpatient for further management of his anticoagulation. He was counseled about the importance of anti-coagulation as well as advised to abstain from an activities that require traumatic contact. In addition, he was told to be vigilant about any potential bleeding and to return to the emergency department if she had any recurring or new concerning symptoms. This is a brief summary of the events that occurred during this hospital stay. For more information, please refer to the hospital documentation. - Date & Time of H&P Date of H&P: 11/06/18 Time of H&P: 02:48 Discharge Exam - Head Exam Head Exam: ATRAUMATIC - Eye Exam Eye Exam: EOMI, PERRL - Respiratory Exam Respiratory Exam: Clear to PA & Lateral, NORMAL BREATHING PATTERN - Cardiovascular Exam Cardiovascular Exam: REGULAR RHYTHM, RRR - GI/Abdominal Exam GI & Abdominal Exam: Normal Bowel Sounds, Soft. absent: Tenderness - Extremities Exam Extremities exam: full ROM - Neurological Exam Neurological exam: Alert, CN II-XII Intact, Oriented x3 - Skin Skin Exam: Dry, Intact Discharge Plan - Discharge Medications Prescriptions: Apixaban [Eliquis] 5 mg PO BID #60 tablet Apixaban [Eliquis] 10 mg PO BID #26 tab Atorvastatin [Lipitor] 20 mg PO DAILY #30 tab - Follow Up Plan Condition: STABLE Disposition: HOME/ ROUTINE Instructions: Bleeding Precautions Additional Instructions: 1) You are to take Eliquis 10 mg twice a day, once in the morning and once in the evening, for a total of seven days. The last dose should be in the evening of November 13, 2018. 2) Then on November 14 you should take the 5 mg Eliquis tablet, twice a day, once in the morning and once in the evening, for at least six months. 3) Follow up with your PMD, Dr. Parenll, within the next 5 day. 4) You are also being prescribed a medication for your cholesterol called Atorvastatin, you are to take this tablet after dinner or before bedtime. 5) We strongly recommend that you walk at least 30 minutes everyday. 6) Remember, you are on a blood thinner now, and therefore, if you have any bleeding that will not stop, come to the Emergency department immediately. 7) Also, you should schedule an appointment with the human resources operations manager, Dr. Maki, as we discussed. 8) Please return to the emergency department if you have any new or concerning symptoms. Referrals: Ernesto Maki MD [Staff Provider] - Juan J Parnell MD [Primary Care Provider] - <Harmony Quintanilla - Last Filed: 11/07/18 16:47> Provider - Provider Date of Admission: 11/06/18 02:39 Attending physician: Eliseo Ocampo MD Primary care physician: Juan J Parnell MD Consults: 11/06/18 06:37 Consult [Physician Consult] Routine Comment: pe,elevatd d-dimer Consulting Provider: Nica Dean Consulting Physician: Nica Dean Reason for Consult: pe,elevatd d-dimer Hospital Course - Lab Results Lab Results: Most Recent Lab Values WBC 5.6 10^3/uL (4.5-11.0) 11/07/18 06:00 RBC 5.12 10^6/uL (3.5-6.1) 11/07/18 06:00 Hgb 15.1 g/dL (14.0-18.0) 11/07/18 06:00 Hct 46.1 % (42.0-52.0) 11/07/18 06:00 MCV 90.0 fl (80.0-105.0) 11/07/18 06:00 MCH 29.5 pg (25.0-35.0) 11/07/18 06:00 MCHC 32.8 g/dl (31.0-37.0) 11/07/18 06:00 RDW 12.9 % (11.5-14.5) 11/07/18 06:00 Plt Count 234 10^3/uL (120.0-450.0) 11/07/18 06:00 MPV 10.7 fl (7.0-11.0) 11/07/18 06:00 Neut % (Auto) 24.9 % (50.0-68.0) L 11/07/18 06:00 Lymph % (Auto) 62.8 % (22.0-35.0) H 11/07/18 06:00 [place] % (Auto) 10.3 % (1.0-6.0) H 11/07/18 06:00 Eos % (Auto) 1.6 % (1.5-5.0) 11/07/18 06:00 Baso % (Auto) 0.4 % (0.0-3.0) 11/07/18 06:00 Lymph # (Auto) 3.5 (1.2-3.4) H 11/07/18 06:00 [place] # (Auto) 0.6 (0.1-0.6) 11/07/18 06:00 Eos # (Auto) 0.1 (0.0-0.7) 11/07/18 06:00 Baso # (Auto) 0.02 K/mm3 (0.0-2.0) 11/07/18 06:00 Absolute Neuts (auto) 1.41 (1.4-6.5) 11/07/18 06:00 PT 12.6 SECONDS (9.4-12.5) H 11/06/18 08:45 INR 1.12 11/06/18 08:45 APTT 47.9 Seconds (26.9-38.3) H 11/06/18 13:00 D-Dimer, Quantitative 3330 ng/mlDDU (0-243) H 11/06/18 00:30 Sodium 141 mmol/L (132-148) 11/07/18 06:00 Potassium 4.2 mmol/L (3.6-5.0) 11/07/18 06:00 Chloride 101 mmol/L (98-107) 11/07/18 06:00 Carbon Dioxide 32 mmol/L (21-33) 11/07/18 06:00 Anion Gap 12 (10-20) 11/07/18 06:00 BUN 14 mg/dL (7-21) 11/07/18 06:00 Creatinine 0.9 mg/dl (0.8-1.5) 11/07/18 06:00 Est GFR ( Amer) > 60 11/07/18 06:00 Est GFR (Non-Af Amer) > 60 11/07/18 06:00 POC Glucose (mg/dL) 117 mg/dL (65-110) H 11/05/18 23:50 Random Glucose 98 mg/dL (70-110) 11/07/18 06:00 Hemoglobin A1c 5.7 % (4.2-6.5) 11/06/18 08:45 Calcium 9.3 mg/dL (8.4-10.5) 11/07/18 06:00 Magnesium 2.0 mg/dL (1.7-2.2) 11/06/18 06:00 Total Bilirubin 0.7 mg/dL (0.2-1.3) 11/07/18 06:00 AST 33 U/L (17-59) 11/07/18 06:00 ALT 22 U/L (7-56) 11/07/18 06:00 Alkaline Phosphatase 67 U/L (38-126) 11/07/18 06:00 Lactate Dehydrogenase 364 U/L (333-699) 11/06/18 19:02 Total Creatine Kinase 173 U/L (35-230) 11/06/18 19:02 Troponin I < 0.01 ng/mL 11/06/18 19:02 Total Protein 7.9 g/dL (5.8-8.3) 11/07/18 06:00 Albumin 4.5 g/dL (3.0-4.8) 11/07/18 06:00 Globulin 3.4 gm/dL 11/07/18 06:00 Albumin/Globulin Ratio 1.3 (1.1-1.8) 11/07/18 06:00 Triglycerides 46 mg/dL (35-160) 11/06/18 08:45 Cholesterol 233 mg/dL (130-200) H 11/06/18 08:45 LDL Cholesterol Direct 166 mg/dL (0-129) H 11/06/18 08:45 HDL Cholesterol 51 mg/dL (29-60) 11/06/18 08:45 TSH 3rd Generation 1.08 mIU/mL (0.46-4.68) 11/06/18 08:45 Urine Color Straw (YELLOW) 11/06/18 00:26 Urine Appearance Clear (CLEAR) 11/06/18 00:26 Urine pH 6.5 (4.7-8.0) 11/06/18 00:26 Ur Specific [place] <= 1.005 (1.005-1.035) 11/06/18 00:26 Urine Protein Negative mg/dL (<30 mg/dL) 11/06/18 00:26 Urine Glucose (UA) Negative mg/dL (NEGATIVE) 11/06/18 00:26 Urine Ketones Negative mg/dL (NEGATIVE) 11/06/18 00:26 Urine Blood Negative (NEGATIVE) 11/06/18 00:26 Urine Nitrate Negative (NEGATIVE) 11/06/18 00:26 Urine Bilirubin Negative (NEGATIVE) 11/06/18 00:26 Urine Urobilinogen 0.2 E.U./dL (<1 E.U./dL) 11/06/18 00:26 Ur Leukocyte Esterase Negative [place]/uL (NEGATIVE) 11/06/18 00:26 Influenza Typ A,B (EIA) Negative for flu a/b (NEGATIVE) 11/06/18 04:43 Attending/Attestation - Attestation I have personally seen and examined this patient.: Yes I have fully participated in the care of the patient.: Yes I have reviewed all pertinent clinical information, including history, physical exam and plan: Yes Notes (Text): 11/07/18 16:42 Medical record note made by the resident after discussion with my direction and input after the patient was personally seen and examined by me. I have reviewed the chart and agree that the record accurately reflects by personal performance of the history, physical exam, data review, and medical decision-making, in the course for the patient. I have also personally directed the plan of care. 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 Patient was found to be tachycardiac and was also found to have elevated D-Dimer. CT Angio: showed PE in segmental branch on the Right. Pt was treated with therapeutic lovenox. His Lovenox is switched to Apixiban 10 mg POI BID for 7 days , followed by 5 mg PO BID. Issue of anticoagulation was discussed in detail. Risk and benefit was discussed in detail. He is ambulatory and is on room air at the time of discharge. Management plan was discussed in detail with patient. Education was provided.
== END 2018-11-07 16:33 | disposition home or self-care (01) ==
LOC: ED 23:27 → ERH 11-06 02:39 → UNDOADMOB 11-06 02:48 → ERH 11-06 02:48 → 3RNO 11-06 09:36
PROVIDERS: ADMIT Hospitalist; ATTEND Hospitalist
DX: I26.99 Other pulmonary embolism without acute cor pulmonale (principal); E78.00 Pure hypercholesterolemia, unspecified; R55 Syncope and collapse; R53.1 Weakness; R42 Dizziness and giddiness; D68.9 Coagulation defect, unspecified; Z82.49 Family history of ischemic heart disease and other diseases of the circulatory system
CPT/HCPCS: 36415; 70450; 71045; 71275; 80053; 80061; 81003; 82550; 82948; 83036; 83615; 83735; 84443; 84484; 85025; 85027; 85378; 85610; 85730; 87804; 93005; 93306; 93970; 96372; 99285; G0378; J1650; Q9967

== ENCOUNTER 2019-01-06 22:45 | Emergency (ER) | payer OTHER ==
[2019-01-06 22:55] VITALS: RESP 18; TEMP 98.7; BMI 20.9
[2019-01-06 23:28] LABS: BASO # 0.01 {null, K/mm3} (0.0-2.0); BASO % 0.2 % (0.0-3.0); EOS # 0.1 (0.0-0.7); EOS % 1.6 % (1.5-5.0); HEMOGLOBIN 14.3 g/dL (14.0-18.0); LYMPH # 2.1 (1.2-3.4); LYMPH % 38.7 % (22.0-35.0); MEAN CELL VOLUME 88.2 fl (80.0-105.0); MEAN CORPUSCULAR HEMOGLOBIN 30.1 pg (25.0-35.0); MEAN CORPUSCULAR HGB CONC 34.1 g/dl (31.0-37.0); MEAN PLATELET VOLUME 10.3 fl (7.0-11.0); MONO # 0.5 (0.1-0.6); MONO % 9.1 % (1.0-6.0); RBC 4.75 {null, 10^6/uL} (3.5-6.1); RED CELL DISTRIBUTION WIDTH 12.7 % (11.5-14.5); WHITE BLOOD COUNT 5.5 {null, 10^3/uL} (4.5-11.0)
[2019-01-06 23:37] LABS: ALB/GLOB RATIO 1.4 (1.1-1.8); ALBUMIN 4.3 g/dL (3.0-4.8); ALT/SGPT 23 U/L (7-56); AST/SGOT 31 U/L (17-59); BLOOD UREA NITROGEN 12 mg/dL (7-21); CALCIUM 8.9 mg/dL (8.4-10.5); GFR NON-AFRICAN AMERICAN > 60
[2019-01-06] MEDS ORDERED: Potassium Chloride 40 mEq/30 ml LIQ UD PO STA (23:38)
[2019-01-06 23:46] LABS: INR 1.05; PARTIAL THROMBOPLASTIN TIME 32.8 Seconds (26.9-38.3); PROTHROMBIN TIME 11.7 SECONDS (9.4-12.5)
[2019-01-06 23:48] LABS: B-TYPE NATRIURETIC PEPTIDE 20.2 pg/mL (0-450); TROPONIN I < 0.01 ng/mL
--- NOTE | 2019-01-06 23:54 | ED PDOC ---
Arrival/HPI <Paresh العلي - Last Filed: 01/07/19 03:18> - General Historian: Patient - History of Present Illness Narrative History of Present Illness (Text): 01/06/19 23:54 53 year old male, with past medical history of PE recently diagnosed in Oct of this year, he is currently on eliquis, presents to the emergency department complaining of generalized weakness, and urinary frequency, which started tonight while he was eating dinner, states that he couldn't even finish eating his dinner due to the symptoms. Patient states he felt well earlier today. Patient denies any headache, dizziness, chest pain, shortness of breath, abdominal pain, N/V/D, dysuria, back pain, fever, chills, URI, leg pain/swelling, recent travel or any other complaint. PMD Parnell <Carmenza Piedra PA-C - Last Filed: 01/07/19 17:19> - General Chief Complaint: Weakness/Neurological Deficit Time Seen by Provider: 01/06/19 22:46 Past Medical History - Tetanus Immunization Tetanus Immunization: Unknown - Pulmonary Hx Pulmonary Embolism: Yes (clot right lung) - Musculoskeletal/Rheumatological Hx Falls: No - Gastrointestinal Other/Comment: inguinal hernia - Psychiatric Hx Substance Use: No - Anesthesia Hx Anesthesia: No Hx Anesthesia Reactions: No Hx Malignant Hyperthermia: No <Carmenza Piedra PA-C - Last Filed: 01/07/19 17:19> Family/Social History Family/Social History: No Known Family HX Smoking Status: Never Smoked Hx Alcohol Use: No Hx Substance Use: No <Carmenza Piedra PA-C - Last Filed: 01/07/19 17:19> Allergies/Home Meds <Paresh العلي - Last Filed: 01/07/19 03:18> <Carmenza Piedra PA-C - Last Filed: 01/07/19 17:19> Allergies/Adverse Reactions: Allergies No Known Allergies Allergy (Verified 11/05/18 23:59) Review of Systems - Review of Systems Constitutional: Fatigue. absent: Fevers ENT: absent: Sore Throat, Rhinorrhea Respiratory: absent: SOB, Cough Cardiovascular: absent: Chest Pain, Palpitations, Edema Gastrointestinal: absent: Abdominal Pain, Nausea, Vomiting Genitourinary Male: Frequency. absent: Dysuria Musculoskeletal: absent: Arthralgias, Back Pain Skin: absent: Rash, Pruritis Neurological: absent: Headache, Dizziness <Carmenza Piedra PA-C - Last Filed: 01/07/19 17:19> Physical Exam Vital Signs Temp Pulse Resp BP Pulse Ox 01/07/19 00:08 98 H 18 156/89 H 96 01/06/19 22:55 98.7 F 105 H 18 174/97 H 100 <Paresh العلي - Last Filed: 01/07/19 03:18> Vital Signs Temp Pulse Resp BP Pulse Ox 01/06/19 22:55 98.7 F 105 H 18 174/97 H 100 Temperature: Afebrile Blood Pressure: Hypertensive Pulse: Tachycardic Respiratory Rate: Normal Appearance: Positive for: Well-Appearing, Non-Toxic, Comfortable Pain Distress: None Mental Status: Positive for: Alert and Oriented X 3 - Systems Exam Head: Present: Atraumatic, Normocephalic Pupils: Present: PERRL Extroacular Muscles: Present: EOMI Conjunctiva: Present: Normal Ears: Present: Normal, NORMAL TM Mouth: Present: Moist Mucous Membranes Pharnyx: Present: Normal. No: ERYTHEMA, EXUDATE Neck: Present: Normal Range of Motion. No: Meningeal Signs, Lymphadenopathy Respiratory/Chest: Present: Clear to Auscultation, Good Air Exchange. No: Respiratory Distress, Accessory Muscle Use Cardiovascular: Present: Regular Rate and Rhythm, Normal S1, S2. No: Murmurs Abdomen: No: Tenderness, Distention, Peritoneal Signs Back: Present: Normal Inspection Upper Extremity: Present: Normal Inspection. No: Cyanosis, Edema Lower Extremity: Present: Normal Inspection. No: Edema Neurological: Present: GCS=15, CN II-XII Intact, Speech Normal, Motor Func Grossly Intact, Normal Sensory Function Skin: Present: Warm, Dry, Normal Color. No: Rashes Psychiatric: Present: Alert, Oriented x 3, Normal Insight, Normal Concentration <Carmenza Piedra PA-C - Last Filed: 01/07/19 17:19> Medical Decision Making ED Course and Treatment: 01/07/19 03:18 0-2 wbc w/ +LE, hematuria given pt w/ urinary symptoms will rx and have f/u with urology. No CVAT. - Lab Interpretations Lab Results: PT 11.7 SECONDS (9.4-12.5) 01/06/19 23:03 INR 1.05 01/06/19 23:03 APTT 32.8 Seconds (26.9-38.3) 01/06/19 23:03 D-Dimer, Quantitative 3353 ng/mlDDU (0-243) H 01/06/19 23:03 Troponin I < 0.01 ng/mL 01/06/19 23:03 NT-Pro-B Natriuret Pep 20.2 pg/mL (0-450) 01/06/19 23:03 Total Bilirubin 0.4 mg/dL (0.2-1.3) 01/06/19 23:03 AST 31 U/L (17-59) 01/06/19 23:03 ALT 23 U/L (7-56) 01/06/19 23:03 Alkaline Phosphatase 82 U/L (38-126) 01/06/19 23:03 Total Protein 7.4 g/dL (5.8-8.3) 01/06/19 23:03 Albumin 4.3 g/dL (3.0-4.8) 01/06/19 23:03 Globulin 3.1 gm/dL 01/06/19 23:03 Albumin/Globulin Ratio 1.4 (1.1-1.8) 01/06/19 23:03 Urine Color Yellow (YELLOW) 01/07/19 01:52 Urine Appearance Clear (CLEAR) 01/07/19 01:52 Urine pH 7.0 (4.7-8.0) 01/07/19 01:52 Ur Specific [place] 1.010 (1.005-1.035) 01/07/19 01:52 Urine Protein Negative mg/dL (<30 mg/dL) 01/07/19 01:52 Urine Glucose (UA) Negative mg/dL (NEGATIVE) 01/07/19 01:52 Urine Ketones Negative mg/dL (NEGATIVE) 01/07/19 01:52 Urine Blood Negative (NEGATIVE) 01/07/19 01:52 Urine Nitrate Negative (NEGATIVE) 01/07/19 01:52 Urine Bilirubin Negative (NEGATIVE) 01/07/19 01:52 Urine Urobilinogen 0.2 E.U./dL (<1 E.U./dL) 01/07/19 01:52 Ur Leukocyte Esterase Trace [place]/uL (NEGATIVE) H 01/07/19 01:52 Urine RBC 0 - 2 /hpf (0-2) 01/07/19 01:52 Urine WBC 0 - 2 /hpf (0-6) 01/07/19 01:52 Ur Epithelial Cells 0 - 2 /hpf (0-5) 01/07/19 01:52 Urine Bacteria None /hpf (NONE) 01/07/19 01:52 - RAD Interpretation Radiology Orders: 01/06/19 23:08 CHEST PORTABLE [RAD] Stat 01/07/19 00:01 ANGIO CHEST PE PROTOCOL [CT] Stat - Medication Orders Current Medication Orders: Discontinued Medications Potassium Chloride (Potassium Chloride Oral Soln) 40 meq PO STAT STA Stop: 01/06/19 23:39 Last Admin: 01/07/19 00:06 Dose: 40 meq <Paresh العلي - Last Filed: 01/07/19 03:18> ED Course and Treatment: 01/06/19 23:52 Plan : - IV - Labs - UA, urine cx - EKG - CXR - Influenza - Morphine / Zofran / Toradol - Reassess / disposition CXR : NAD, as read by AYDIN EKG: NSR at 89 bpm, (-) acute ST changes, as read by AYDIN. 01/07/19 00:01 Labs reviewed : d-dimer 3353, glucose 192, k 3.3, trop (-). Influenza : (-). On reevaluation, patient reports no dizziness, CP or SOB. On exam, patient remains awake alert and oriented 3 in no acute distress. Results d/w the patient, CTA chest ordered. 01/07/19 01:53 CTA chest : No pulmonary embolism or arterial dissection. Gastroparesis. B/l basilar subsegmental atelectatic pulmonary changes. As read by [facility] Dr. hCuy Robert. On reevaluation, patient reports no headache, dizziness, CP or SOB. On exam, patient remains awake alert and oriented 3 in no acute distress. Results d/w the patient. Advised to follow up with primary care physician in 1-2 days without fail. Return to the emergency room at any time for any new or worsening symptoms. Patient states he fully agrees with and understands discharge instructions. States that he agrees with the plan and disposition. Verbalized and repeated discharge instructions and plan. I have given the patient opportunity to ask any additional questions. - Lab Interpretations Lab Results: PT 11.7 SECONDS (9.4-12.5) 01/06/19 23:03 INR 1.05 01/06/19 23:03 APTT 32.8 Seconds (26.9-38.3) 01/06/19 23:03 Troponin I < 0.01 ng/mL 01/06/19 23:03 NT-Pro-B Natriuret Pep 20.2 pg/mL (0-450) 01/06/19 23:03 Total Bilirubin 0.4 mg/dL (0.2-1.3) 01/06/19 23:03 AST 31 U/L (17-59) 01/06/19 23:03 ALT 23 U/L (7-56) 01/06/19 23:03 Alkaline Phosphatase 82 U/L (38-126) 01/06/19 23:03 Total Protein 7.4 g/dL (5.8-8.3) 01/06/19 23:03 Albumin 4.3 g/dL (3.0-4.8) 01/06/19 23:03 Globulin 3.1 gm/dL 01/06/19 23:03 Albumin/Globulin Ratio 1.4 (1.1-1.8) 01/06/19 23:03 - RAD Interpretation Radiology Orders: 01/06/19 23:08 CHEST PORTABLE [RAD] Stat - Medication Orders Current Medication Orders: Discontinued Medications Potassium Chloride (Potassium Chloride Oral Soln) 40 meq PO STAT STA Stop: 01/06/19 23:39 <Carmenza Piedra PA-C - Last Filed: 01/07/19 17:19> - PA / MATERIAL MANAGER / Resident Statement / has reviewed & agrees with the documentation as recorded. <Carmenza Piedra PA-C - Last Filed: 01/07/19 17:19> Disposition/Present on Arrival <Paresh العلي - Last Filed: 01/07/19 03:18> - Present on Arrival Any Indicators Present on Arrival: Yes History of DVT/PE: Yes History of Uncontrolled Diabetes: No Urinary Catheter: No History of Decub. Ulcer: No History Surgical Site Infection Following: None - Disposition Have Diagnosis and Disposition been Completed?: Yes Disposition Time: 02:00 Patient Plan: Discharge <Carmenza Piedra PA-C - Last Filed: 01/07/19 17:19> - Disposition Diagnosis: Weakness, UTI (urinary tract infection), Hematuria Disposition: HOME/ ROUTINE Condition: STABLE Discharge Instructions (ExitCare): Blood in the Urine (Hematuria) in Adults, Urinary Tract Infection, Adult (DC), Weakness (ED) Additional Instructions: Thank you for letting us take care of you today. You were treated for weakness. The emergency medical care you received today was directed at your acute symptoms. Return to the Emergency Department if your symptoms worsen, do not improve, or if you have any other problems. Please contact your doctor in 2 days for re-evaluation and follow up. Bring any paperwork you were given at discharge with you along with any medications you are taking to your follow up visit. Our treatment cannot replace ongoing medical care by a primary care provider (PCP) outside of the emergency department. Thank you for allowing the [facility] team to be part of your care today. Prescriptions: Ciprofloxacin [Cipro] 500 mg PO BID 5 Days #10 tab Referrals: Bc Newman MD [Staff Provider] - Follow up with primary Lianna Serna MD [Medical Doctor] - Follow up with primary [facility] [Outside] - Follow up with primary Forms: [employer] (Ind[place]ian), WORK NOTE
[2019-01-07 00:09] VITALS: O2SAT 96
[2019-01-07] MEDS ORDERED: Iodixanol 320 MG/ML 100 ML BOTTLE IV ONE (00:10)
[2019-01-07 02:40] LABS: URINE BILIRUBIN NEGATIVE (NEGATIVE); URINE BLOOD NEGATIVE (NEGATIVE); URINE GLUCOSE (UA) NEGATIVE (NEGATIVE); URINE LEUKOCYTE ESTERASE TRACE Leu/uL (NEGATIVE); URINE PROTEIN NEGATIVE mg/dL (<30 mg/dL); URINE UROBILINOGEN 0.2 E.U./dL (<1 E.U./dL)
[2019-01-07 02:43] LABS: URINE APPEARANCE CLEAR (CLEAR); URINE COLOR YELLOW (YELLOW)
[2019-01-07 03:08] LABS: URINE EPITHELIAL CELLS 0 - 2 /hpf (0-5); URINE RBC 0 - 2 /hpf (0-2); URINE WBC 0 - 2 /hpf (0-6)
[2019-01-07 03:32] VITALS: BP 121/71; PULSE 67
--- NOTE | 2019-01-07 09:35 | CARD ---
APPROVED REPORT Date of service: 01/06/2019 EKG Measurement Heart [id number] <Conclusion> Poor data quality, interpretation may be adversely affected Normal sinus rhythm Normal ECG
--- NOTE | 2019-01-07 10:06 | CT ---
Date of service: 01/07/2019 PROCEDURE: CT Chest with contrast (Pulmonary Angiogram) HISTORY: +d-dimer, r/o PE COMPARISON: None available. TECHNIQUE: Axial computed tomography images were obtained of the chest in the pulmonary arterial phase of enhancement. Coronal and sagittal reformatted images were created and reviewed. Intravenous contrast dose: 100 cc of Visipaque Radiation dose: Total exam DLP = 287.31 mGy-cm. This CT exam was performed using one or more of the following dose reduction techniques: Automated exposure control, adjustment of the mA and/or kV according to patient size, and/or use of iterative reconstruction technique. FINDINGS: PULMONARY ARTERIES: Unremarkable. No pulmonary embolism. AORTA: No acute findings. No thoracic aortic aneurysm. No aortic atherosclerotic calcification or mural plaque present. LUNGS: Unremarkable. No nodule, mass or pulmonary consolidation. PLEURAL SPACES: Unremarkable. No effusion or pneumothorax. HEART: Unremarkable. No cardiomegaly. No significant pericardial effusion. LYMPH NODES: No lymphadenopathy. BONES, CHEST WALL: Unremarkable. No fracture or destructive lesion OTHER FINDINGS: The report concurs with the preliminary [facility] report IMPRESSION: Unremarkable CT pulmonary angiogram. No pulmonary embolus.
--- NOTE | 2019-01-07 11:17 | RAD ---
Date of service: 01/06/2019 HISTORY: weak COMPARISON: 11/06/2018 TECHNIQUE: 1 view obtained. FINDINGS: LUNGS: No active pulmonary disease. PLEURA: No significant pleural effusion identified, no pneumothorax apparent. CARDIOVASCULAR: No aortic atherosclerotic calcification present. Normal cardiac size. No pulmonary vascular congestion. OSSEOUS STRUCTURES: No significant abnormalities. VISUALIZED UPPER ABDOMEN: Normal. OTHER FINDINGS: None. IMPRESSION: No active disease.
== END 2019-01-07 03:30 | disposition home or self-care (01) ==
LOC: ED 22:45
DX: N39.0 Urinary tract infection, site not specified (principal); R53.1 Weakness; R31.9 Hematuria, unspecified; Z86.711 Personal history of pulmonary embolism; Z79.01 Long term (current) use of anticoagulants
CPT/HCPCS: 71045; 71275; 80053; 81001; 82550; 82948; 83615; 83735; 83880; 84484; 85025; 85378; 85610; 85730; 87086; 87804; 93005; 99285; J3480; Q9967

== ENCOUNTER 2019-01-10 15:17 | Emergency (ER) | payer OTHER ==
[2019-01-10 15:17] VITALS: BMI 20.9
[2019-01-10 15:34] VITALS: TEMP 98.6
--- NOTE | 2019-01-10 17:25 | ED PDOC ---
Arrival/HPI - General Chief Complaint: Weakness/Neurological Deficit Time Seen by Provider: 01/10/19 16:32 Historian: Patient - History of Present Illness Narrative History of Present Illness (Text): 01/10/19 17:16 53 year old M with pmh of PE recently diagnosed in Oct of this year (on Eliquis) presents to the emergency department complaining of generalized weakness since this morning. Patient reports being on an empty stomach due to decreased appetite. He denies any focal weakness, fevers, abdominal pain, nausea, vomiting, diarrhea. On 01/06/19 patient recently presented to the emergency department with similar complaint. Inpatient d-dimer (PE hx) and blood work noted mild UTI, patient was prescribed Cipro. Patient endorses being complaint with cipro the last two days but says he skipped taking it today due to decreas ed appetite. He denies any chills, headache, dizziness, chest pain, shortness of breath, dyspnea on exertion, cough, or any other complaint. Time/Duration: 24 hours Symptom Onset: Sudden Symptom Course: Unchanged Activities at Onset: Light Context: Home Past Medical History - Provider Review Nursing Documentation Reviewed: Yes - Infectious Disease Hx of Infectious Diseases: None - Tetanus Immunization Tetanus Immunization: Unknown - Pulmonary Hx Pulmonary Embolism: Yes (clot right lung) - Musculoskeletal/Rheumatological Hx Falls: No - Gastrointestinal Other/Comment: inguinal hernia - Psychiatric Hx Substance Use: No - Anesthesia Hx Anesthesia: No Hx Anesthesia Reactions: No Hx Malignant Hyperthermia: No Family/Social History - Physician Review Nursing Documentation Reviewed: Yes Family/Social History: Unknown Family HX Smoking Status: Never Smoked Hx Alcohol Use: No Hx Substance Use: No Allergies/Home Meds Allergies/Adverse Reactions: Allergies No Known Allergies Allergy (Verified 11/05/18 23:59) Review of Systems - Physician Review All systems were reviewed & negative as marked: Yes - Review of Systems Constitutional: absent: Fevers ENT: absent: Sore Throat, Rhinorrhea, Epistaxis Respiratory: absent: SOB, Wheezing Cardiovascular: absent: Chest Pain, Palpitations, VARGAS, Orthopnea Gastrointestinal: Appetite Changes. absent: Abdominal Pain, Diarrhea, Nausea, Vomiting, Hematemesis Genitourinary Male: absent: Dysuria, Frequency, Hematuria Musculoskeletal: absent: Arthralgias, Back Pain, Neck Pain Skin: absent: Rash, Laceration, Ulcer Neurological: absent: Headache, Dizziness, Focal Weakness, Speech Changes, Facial Droop, Disequilibrium, Seizure Physical Exam Vital Signs Reviewed: Yes Vital Signs Temp Pulse Resp BP Pulse Ox 01/10/19 15:30 98.6 F 77 18 105/62 99 01/10/19 15:20 98.1 F 95 H 19 144/86 100 Temperature: Afebrile Blood Pressure: Normal Pulse: Regular Respiratory Rate: Normal Appearance: Positive for: Well-Appearing, Non-Toxic, Comfortable Pain Distress: Mild Mental Status: Positive for: Alert and Oriented X 3 - Systems Exam Head: Present: Atraumatic, Normocephalic Pupils: Present: PERRL Extroacular Muscles: Present: EOMI Conjunctiva: Present: Normal Mouth: Present: Moist Mucous Membranes Neck: Present: Normal Range of Motion Respiratory/Chest: Present: Clear to Auscultation, Good Air Exchange. No: Respiratory Distress, Accessory Muscle Use Cardiovascular: Present: Regular Rate and Rhythm, Normal S1, S2. No: Murmurs Abdomen: No: Tenderness, Distention, Peritoneal Signs Back: Present: Normal Inspection Upper Extremity: Present: Normal Inspection. No: Cyanosis, Edema Lower Extremity: Present: Normal Inspection. No: Edema Neurological: Present: GCS=15, CN II-XII Intact, Speech Normal Skin: Present: Warm, Dry, Normal Color. No: Rashes Psychiatric: Present: Alert, Oriented x 3, Normal Insight, Normal Concentration Medical Decision Making ED Course and Treatment: 01/10/19 17:25 Impression: 53 year old M presents to the emergency department complaining of generalized weakness since this morning. Patient reports being on an empty stomach due to decreased appetite. He denies any focal weakness, fevers, abdominal pain, nausea, vomiting, diarrhea. On 01/06/19 patient recently presented to the e [facility] department with similar complaint. Blood work and d-dimer (previous PE) was performed. Mild UTI was noted and patient was prescribed Cipro. Patient endorses being complaint with cipro the last two days but says he skipped taking it today due to a decreased appetite. Plan: -- Labs -- Urinalysis -- Reassess and disposition Prior Visits: Notes and results from previous visits were reviewed. Patient was last seen in the emergency department on Progress Notes: Labs done and results unremarkable. Urinalysis normal today- leukocyte esterase positive on prior from two days ago has resolved. Advised patient to finish his course of abx. Follow up with PMD as needed if generalized weakness does not improve. Return for any new/worsening symptoms. However patient denies any other symptoms at this time. Stable for discharge home. - Scribe Statement The provider has reviewed the documentation as recorded by the Russ Orozco All medical record entries made by the Shoshanaibmariam were at my direction and personally dictated by me. I have reviewed the chart and agree that the record accurately reflects my personal performance of the history, physical exam, medical decision making, and the department course for this patient. I have also personally directed, reviewed, and agree with the discharge instructions and disposition. Disposition/Present on Arrival - Present on Arrival Any Indicators Present on Arrival: No History of DVT/PE: Yes History of Uncontrolled Diabetes: No Urinary Catheter: No History of Decub. Ulcer: No History Surgical Site Infection Following: None - Disposition Have Diagnosis and Disposition been Completed?: Yes Diagnosis: Generalized weakness Disposition: HOME/ ROUTINE Disposition Time: 19:00 Patient Problems: Current Active Problems Problem Status Onset Weakness Acute Condition: STABLE Discharge Instructions (ExitCare): Weakness (ED) Additional Instructions: ARSALAN SANTILLAN, thank you for letting us take care of you today. Your provider was Bernice Mcfadden MD and you were treated for OVERALL WEAKNESS. The emergency medical care you received today was directed at your acute symptoms. If you were prescribed any medication, please fill it and take as directed. It may take several days for your symptoms to resolve. Return to the Emergency Department if your symptoms worsen, do not improve, or if you have any other problems. Please contact your doctor or call one of the physicians/clinics you have been referred to that are listed on the Patient Visit Information form that is included in your discharge packet. Bring any paperwork you were given at discharge with you along with any medications you are taking to your follow up visit. Our treatment cannot replace ongoing medical care by a primary care provider outside of the emergency department. Thank you for allowing the [facility] team to be part of your care today. If you had an X-Ray or CT scan: A Radiologist will review the ED reading if any change in treatment is needed we will contact you. If you had a blood, urine, or wound culture: It will take several days for the results, if any change in treatment is needed we will contact you. If you had an STI test: It will take 48 hours for the results. Please call after 1 week if you have not heard back. Referrals: PCP,NO [Non-Staff] - Follow up with primary Forms: [employer] (French)
[2019-01-10 18:25] LABS: BASO # 0.01 K/mm3 (0.0-2.0); BASO % 0.2 % (0.0-3.0); EOS % 0.7 % (1.5-5.0); HEMOGLOBIN 14.8 g/dL (14.0-18.0); LYMPH # 1.5 (1.2-3.4); LYMPH % 36.1 % (22.0-35.0); MEAN CELL VOLUME 88.2 fl (80.0-105.0); MEAN PLATELET VOLUME 10.5 fl (7.0-11.0); MONO # 0.4 (0.1-0.6); MONO % 8.7 % (1.0-6.0); RBC 4.93 10^6/uL (3.5-6.1); RED CELL DISTRIBUTION WIDTH 12.5 % (11.5-14.5); WHITE BLOOD COUNT 4.1 10^3/uL (4.5-11.0)
[2019-01-10 18:35] LABS: ALB/GLOB RATIO 1.4 (1.1-1.8); ALBUMIN 4.4 g/dL (3.0-4.8); ALT/SGPT 20 U/L (7-56); AST/SGOT 31 U/L (17-59); BLOOD UREA NITROGEN 10 mg/dL (7-21); CALCIUM 9.2 mg/dL (8.4-10.5); GFR NON-AFRICAN AMERICAN > 60
[2019-01-10 18:56] VITALS: BP 138/82; PULSE 82; RESP 17; O2SAT 98
[2019-01-10 18:56] LABS: PH,URINE 7.5 (4.7-8.0); URINE BILIRUBIN NEGATIVE (NEGATIVE); URINE BLOOD NEGATIVE (NEGATIVE); URINE GLUCOSE (UA) NEGATIVE (NEGATIVE); URINE LEUKOCYTE ESTERASE NEGATIVE Leu/uL (NEGATIVE); URINE PROTEIN NEGATIVE mg/dL (<30 mg/dL); URINE UROBILINOGEN 0.2 E.U./dL (<1 E.U./dL)
[2019-01-10 18:57] LABS: URINE APPEARANCE CLEAR (CLEAR); URINE COLOR YELLOW (YELLOW)
--- NOTE | 2019-01-11 16:19 | CARD ---
APPROVED REPORT Date of service: 01/10/2019 EKG Measurement Heart [id number] <Conclusion> Normal sinus rhythm Normal ECG
== END 2019-01-10 19:47 | disposition home or self-care (01) ==
LOC: ED 15:17
DX: R53.1 Weakness (principal); Z86.711 Personal history of pulmonary embolism; Z79.01 Long term (current) use of anticoagulants